=== PATIENT | female | born 2005 | race Caucasian/White ===

== ENCOUNTER 2025-04-07 16:57 | Observation (INO) ==
--- NOTE | 2025-04-07 17:47 | Emergency Department Note ---
ED Provider Note History of Present Illness Chief Complaint: Abdominal Pain Stated Complaint: SEVERE STOMACH PAIN Time Seen by Provider: 04/07/25 17:35 Source: patient Mode of arrival: ambulatory Limitations: no limitations Patient is a 20-year-old female who presents to the emergency department with complaints of lower abdominal pain. Patient states that she started having severe lower abdominal pain just 3 hours prior to arrival. Patient notes that her stomach got "hard as a rock". Patient denies any nausea, vomiting, or diarrhea. Patient also denies any previous abdominal surgeries. Home Medications Medication Instructions Recorded Confirmed Type oxycodone-acetaminophen 5 mg-325 1 tab PO Q6H PRN pain #10 tabs 04/08/25 Rx mg tablet Allergies Allergy/AdvReac Type Severity Reaction Status Date / Time No Known Drug Allergies Allergy Verified 04/07/25 21:30 Past Med/Surg History Problem List (Updated 04/08/25 @ 17:17 by JAKE Lockhart) Encounter for pre-operative examination Acute appendicitis (Acute) Medical History No pertinent past medical history Surgical History Hx of knee surgery Social History Smoking Status: Never smoker Second Hand Exposure: No; Do You Dip or Chew Tobacco: No; Tobacco Cessation Education Requested by Patient: No Hx Alcohol Use: Yes Alcohol type: hard liquor Hx Substance Use: No Preferred Language: Tajik Communication Ability: Effective Cloth Worker Required: No Beliefs That Will Affect Care: None Current Living Situation: Other Current Living Situation Comment: College Roommates Other Information That Helps Us Care for You: No Feels Safe at Home: Yes Safety Concerns: Feels Safe At This Time Assistive Devices: None Physical Exam Vital Signs Vital Signs - 24 hr 04/07/25 17:56 04/07/25 18:24 04/07/25 20:39 Temperature 37.1 C Temperature Source Oral Pulse Rate Pulse Rate [Finger] 90 89 Respiratory Rate 14 18 Respiratory Effort / Characteristics Non-Labored Spontaneous Non-Labored Spontaneous Respiratory Depth Normal Normal Respiratory Pattern Regular Regular Blood Pressure [Right Arm] 138/97 132/87 Blood Pressure Mean [Right Arm] 110 102 Blood Pressure Position [Right Arm] Lying Pulse Oximetry 100 100 98 Oxygen Delivery Method Room Air Room Air Room Air 04/07/25 21:12 Temperature 36.7 C Temperature Source Oral Pulse Rate 79 Pulse Rate [Finger] Respiratory Rate 18 Respiratory Effort / Characteristics Respiratory Depth Respiratory Pattern Blood Pressure [Right Arm] Blood Pressure Mean [Right Arm] Blood Pressure Position [Right Arm] Pulse Oximetry 99 Oxygen Delivery Method Room Air VITAL SIGNS - Vital signs and nursing notes were reviewed. GENERAL -20-year-old female appearing her stated age who is in no acute distress. Communicates well with provider and answers questions appropriately. HEAD - NC/AT. EYES - PERRL with EOMI bilaterally. Conjunctiva pink and moist with no injection noted. EARS - No deformities of external structures noted on gross examination bilaterally. NOSE - Midline and without cyanosis. No epistaxis or purulent drainage noted. LUNGS - Chest wall symmetric without accessory muscle use, intercostals retractions, or central cyanosis. Breath sounds clear throughout all horta. No wheezes, rales, or rhonchi appreciated. CARDIAC - RRR with S1/S2. No murmur, rubs, or gallops appreciated. ABDOMEN - Abdominal contour without pulsations or visible masses. Negative [place]'s or Alexandra Nichols's Signs. BS normoactive all four quadrants. Increased tenderness to palpation appreciated in the lower abdomen. No guarding. No noticeable rebound Tenderness. No palpable masses, hepatosplenomegaly, or ascites noted. NEUROLOGIC - Sensory intact to light touch throughout. PSYCH - A&Ox3 and cooperates fully with examiner. Pt is very pleasant and interacts well with examiner. Course Administered Medications Discontinued Medications Bupivacaine HCl/Epinephrine Bitart (Bupivacaine/Epinephrine 0.5% Mpf 1:200,000 30 Ml Vial) Confirm Administered Dose 30 ml .ROUTE .STK-MED ONE Stop: 04/07/25 21:48 Last Admin: 04/07/25 22:19 Dose: 30 ml Documented By: KILLIAN Sodium Chloride (Nss) 1,000 mls @ 999 mls/hr IV .Q1H1M ONE Stop: 04/07/25 19:21 Last Infusion: 04/07/25 19:30 Dose: Infused Documented By: Admin: 04/07/25 18:27 Dose: 999 mls/hr Documented By: RHONDA Piperacillin Sod/Tazobactam Sod (Zosyn) 4.5 gm in 100 mls @ 200 mls/hr IV NOW ONE; Protocol Stop: 04/07/25 20:33 Last Infusion: 04/07/25 21:08 Dose: Infused Documented By: Admin: 04/07/25 20:37 Dose: 200 mls/hr Documented By: LOBO Ioversol (Optiray 320 100ml) 90 ml IV ONCE ONE Stop: 04/07/25 19:15 Last Admin: 04/07/25 19:15 Dose: 90 ml Documented By: PIERCE Ketorolac Tromethamine (Ketorolac 30 Mg/Ml Vial) 15 mg IV ONCE PRN PRN Reason: PACU Use Only-Pain Stop: 04/08/25 05:35 Last Admin: 04/07/25 22:43 Dose: 15 mg Documented By: WILLAM Ketorolac Tromethamine (Ketorolac Tromethamine 15 Mg/Ml Vial) 15 mg IV Q6H PRN PRN Reason: Pain & Pre PT Stop: 04/12/25 23:29 Last Admin: 04/08/25 08:12 Dose: 15 mg Documented By: Admin: 04/08/25 02:17 Dose: 15 mg Documented By: MARCO Meperidine HCl (Meperidine Hcl 25 Mg/Ml Carp/Vial) 12.5 mg IV Q5M PRN PRN Reason: Surgi Pain/Chills/Rigors Stop: 04/08/25 06:33 Last Admin: 04/07/25 22:43 Dose: 12.5 mg Documented By: WILLAM Meperidine HCl (Meperidine Hcl 25 Mg/Ml Carp/Vial) Confirm Administered Dose 25 mg .ROUTE .STK-MED ONE Stop: 04/07/25 22:43 Last Admin: 04/07/25 23:33 Dose: Not Given Documented By: MARCO Medical Decision Making Differential Diagnosis Differential diagnoses includes gastritis, gastroenteritis, IBS, small bowel obstruction, pancreatitis, peritonitis, constipation, appendicitis, among others. Medical Records Attestation: I reviewed the patient's medical records. Home Medications was personally reviewed by me Laboratory Data Attestation: I reviewed the patient's lab results. 04/07/25 17:53 04/07/25 17:53 Lab Results 04/07/25 Range/Units 17:53 WBC 16.58 H (4.8-10.8) K/ul RBC 4.61 (4.20-5.40) M/uL Hgb 13.8 (12.0-16.0) g/dl Hct 40.4 (37.0-47.0) % MCV 87.6 (80.0-100.0) fL MCH 29.9 (25.0-34.0) pg MCHC 34.2 (32.0-36.0) g/dL RDW Std Deviation 43.5 (36.4-46.3) fL RDW Coeff of [place] 13.5 (11.5-14.5) % Plt Count 317 (130-400) K/uL MPV 10.1 (9.4-12.4) fL Immature Gran % (Auto) 0.3 % Neut % (Auto) 78.8 % Lymph % (Auto) 16.0 % [place] % (Auto) 3.6 % Eos % (Auto) 1.1 % Baso % (Auto) 0.2 % Neut # (Auto) 13.06 H (1.40-6.50) K/uL Lymph # (Auto) 2.65 (1.20-3.40) K/uL [place] # (Auto) 0.59 (0.11-0.59) K/uL Eos # (Auto) 0.19 (0.00-0.50) K/uL Baso # (Auto) 0.04 (0.00-0.20) K/uL Immature Gran # (Auto) 0.05 (0.01-0.20) K/uL Sodium 137 (136-145) mmol/L Potassium 3.3 L (3.5-5.1) mmol/L Chloride 101 (98-107) mmol/L Carbon Dioxide 26 (21-32) mmol/L Anion Gap 10 (3-11) BUN 12 (6-23) mg/dl Creatinine 0.79 (0.6-1.2) mg/dl Est Cr Clr Drug Dosing 105.7 ml/min eGFR 109.75 BUN/Creatinine Ratio 15.2 (10-20) Glucose 86 (70-99(Fasting)) mg/dl Calcium 9.8 (8.6-10.3) mg/dl Total Bilirubin 0.8 (0.2-1.0) mg/dl AST 26 (13-39) U/L ALT 17 (7-52) U/L Alkaline Phosphatase 67 (34-104) U/L Total Protein 7.9 (6.0-8.3) gm/dl Albumin 4.2 (3.4-5.0) gm/dl Globulin 3.7 (2.5-4.0) gm/dl Albumin/Globulin Ratio 1.1 (0.9-2) Lipase 14 (11-82) U/L HCG, Qual Negative (Negative) MDM Narrative Patient is a 20-year-old female who presents to the emergency department with complaints of lower abdominal pain. Patient states that she started having severe lower abdominal pain just 3 hours prior to arrival. Patient notes that her stomach got "hard as a rock". Patient denies any nausea, vomiting, or diarrhea. Patient also denies any previous abdominal surgeries. Patient was evaluated by myself and findings were noted in the physical exam above. Patient was ordered IV placement, lab work, urinalysis and CT of the abdomen pelvis. Patient was also ordered a liter of normal saline. Patient's lab work resulted with an elevated white blood cell count of 16.58. Patient had no significant electrolyte imbalance noted. Patient did have a negative hCG level. Patient's urinalysis noted 2+ ketones but was not indicative of infection. Patient declined any need for significant pain control at this time, noting that the pain is tolerable. Patient CT of the abdomen pelvis showed a mildly dilated appendix without definitive evidence of acute appendicitis. The patient is having localized pain to her lower abdomen, primarily on the right side. I reached out and spoke with Dr. Bernardino Galloway who is on-call for general surgery. Given the full report of the patient's chief complaint, current status and the results of her imaging and lab work. He was agreeable to see the patient at bedside and will likely take her to the operating room for an appendectomy. I discussed this plan with the patient the patient verbalized understanding and was agreeable to the plan. Patient declined any need for pain control at this time. Patient was ordered 4.5 g of Zosyn. Please refer to Dr. Galloway and his team's documentation for further evaluation and management of this patient. Patient was taken to the OR by nursing staff. Impression Acute appendicitis Discharge Plan Visit Data Chief Complaint: Abdominal Pain Stated Complaint: SEVERE STOMACH PAIN ED Provider: Yadile Pimentel ED Midlevel Provider: Tiara Jackson Discharge Problem: Acute appendicitis Patient Disposition: Being Evaluated by Surgeon Condition: Fair Discharge Instructions Interventions: ED Discharge Assessment Last Done: 04/07/25 21:12 ED DC CONDITION Conditon at Discharge Condition at Discharge: Fair Discharge Problem: Acute appendicitis Qualifiers: Acute appendicitis type: with localized peritonitis Appendicitis gangrene presence: without gangrene Appendicitis perforation presence: without perforation Appendicitis abscess presence: without abscess Qualified Code(s): K 35.30 - Acute appendicitis with localized peritonitis, without perforation or gangrene
[2025-04-07 18:19] LABS: Appearance Urine Clear (Clear); Bacteria Urine Automated None Seen (None Seen); Cast Urine Automated 0-2 /lpf (0-2); Epithelial Cell Urine Auto 0-2 /hpf (0-2); Glucose Urine UA Negative (Negative); RBC Urine Automated 0-2 /hpf (0-2); WBC Urine Automated 0-5 /hpf (0-5)
[2025-04-07 18:25] LABS: Hematocrit (blood only) 40.4 % (37.0-47.0); Hemoglobin 13.8 g/dl (12.0-16.0); Immature Granulocytes # (auto) 0.05 K/uL (0.01-0.20); Immature Granulocytes % (auto) 0.3 %; Mean Corpuscular Hemoglobin 29.9 pg (25.0-34.0); Mean Corpuscular Volume 87.6 fL (80.0-100.0); Platelet Count 317 K/uL (130-400); RDW Standard Deviation 43.5 fL (36.4-46.3); Red Blood Count 4.61 M/uL (4.20-5.40); White Blood Count 16.58 K/ul (4.8-10.8)
[2025-04-07] MEDS: SODIUM CHLORIDE 0.9% 1,000 ML IV ONE (18:27)
[2025-04-07 18:35] LABS: Alanine Aminotransferase 17.0 U/L (7-52); Albumin Globulin Ratio 1.1 (0.9-2); Alkaline Phosphatase 67.0 U/L (34-104); Anion Gap 10.0 (3-11); Bilirubin,Total 0.8 mg/dl (0.2-1.0); Blood Urea Nitrogen 12.0 mg/dl (6-23); Calcium 9.8 mg/dl (8.6-10.3); Carbon Dioxide 26.0 mmol/L (21-32); Chloride 101.0 mmol/L (98-107); Creatinine Clr Calc Pharmacy 105.7 ml/min; Globulin 3.7 gm/dl (2.5-4.0); Glucose 86.0 mg/dl (70-99(Fasting)); Lipase 14.0 U/L (11-82); Potassium 3.3 mmol/L (3.5-5.1); Sodium 137.0 mmol/L (136-145); Total Protein 7.9 gm/dl (6.0-8.3)
[2025-04-07 18:36] LABS: Pregnancy Test, Serum Negative (Negative)
[2025-04-07] MEDS: OPTIRAY 320 100ml IV ONE (19:15)
--- NOTE | 2025-04-07 19:56 | CT Scan Report ---
Clinical History: Abdominal pain Technique: Axial computed tomography images were obtained of the abdomen and pelvis after the administration of intravenous contrast. No prior CT is available for comparison. Findings: The liver is overall of normal size, attenuation, and contour with no sign of cirrhosis or significant fatty infiltration. No liver mass lesion is seen. The portal vein is patent. The gallbladder appears unremarkable. No bile duct dilatation is noted. The spleen is of normal size. No focal splenic lesion is evident. The pancreas appears normal with no sign of acute or chronic pancreatitis and no mass lesion noted. The pancreatic duct is of normal caliber. The adrenal glands appear unremarkable. No definite renal or proximal ureteral calculi are seen on this contrast-enhanced study. There is no hydronephrosis or perinephric stranding. No renal mass lesion is identified. The aorta is of normal caliber. No abdominal adenopathy is seen. The stomach appears normal. There is no sign of small bowel obstruction. The colon appears unremarkable. The appendix is mildly dilated, measuring up to 8 mm. No clear adjacent soft tissue stranding is seen. No free intraperitoneal air is identified. There is a small amount of free pelvic fluid No distal ureteral or bladder calculi are seen. No bladder mass lesion is evident. The iliac arteries are of normal caliber. No pelvic adenopathy is noted. The lungs bases appear clear. No fracture is identified. No focal osseous lesion is seen Impression: 1. Mildly dilated appendix without definite appendicitis. Early/mild acute appendicitis cannot be excluded. Correlation with clinical symptoms and history is recommended 2. Small amount of free pelvic fluid ACT 112: Positive. There are findings on this exam that require communication between the performing entity and the patient following Patient Test Result Information Act ([place] ACT 112) guidelines. Electronically signed by Antwan Bobo 04-07-2025 7:56 PM
[2025-04-07] MEDS: PIPERACILLIN/TAZOBACTAM 4.5 GM/100 ML BAG IV ONE (20:37)
--- NOTE | 2025-04-07 20:53 | History & Physical Report ---
Date of Service April 07, 2025 Assessment & Plan (1) Acute appendicitis: Plan 20-year-old woman with acute appendicitis. We discussed the risk benefits of laparoscopic appendectomy. All her questions were answered and she is agreeable to proceed. Will take her to the operating room at the earliest convenience. Consent has been obtained. History of Present Illness Primary Care Provider: NO PCP 20-year-old presents with a 1 day history of severe lower abdominal pain. He begins cramping and then worsens. It is now migrated to the right lower quadrant. She did have chills. No nausea or vomiting. No fevers. Normal bowel movements. She has never had abdominal surgery before. White blood cell count 16. CT scan demonstrates early acute appendicitis. Past Med/Surg History Problem List (Updated 04/07/25 @ 20:53 by Bernardino Galloway MD) Acute appendicitis Social History Smoking Status: Never smoker Preferred Language: Czech Feels Safe at Home: Yes Review of Systems Review of Systems: All systems reviewed & are unremarkable except as noted in HPI & below Physical Exam Constitutional: WD/WN, vitals as above Eyes: PERRL, conjunctivae normal, anicteric sclerae Neck: trachea midline, no thyromegaly Respiratory: normal respiratory effort, lungs clear to auscultation Cardiovascular: RRR, no murmur, no edema Gastrointestinal (Abdomen): Inspection/Auscultation: abdomen normal to inspection; abdomen not distended Percussion/Palpation: + abdomen tender ( RLQ) and abdomen soft; no guarding and abdomen not rigid Skin: no rashes, warm and dry Psychiatric: A+Ox3, euthymic affect Results & Data Results & Data Vital Signs (Past 12 Hours) Vital Signs Temp Pulse Pulse Resp BP BP Pulse Ox 04/07/25 20:39 37.1 C 89 18 132/87 98 04/07/25 18:24 90 14 138/97 100 04/07/25 17:56 100 04/07/25 17:06 36.4 C L 105 H 18 122/83 98 O2 Del Method 04/07/25 20:39 Room Air 04/07/25 18:24 Room Air 04/07/25 17:56 Room Air 04/07/25 17:06 Room Air Laboratory Results 04/07/25 04/07/25 Range/Units Unknown 17:53 WBC 16.58 H (4.8-10.8) K/ul RBC 4.61 (4.20-5.40) M/uL Hgb 13.8 (12.0-16.0) g/dl Hct 40.4 (37.0-47.0) % MCV 87.6 (80.0-100.0) fL MCH 29.9 (25.0-34.0) pg MCHC 34.2 (32.0-36.0) g/dL RDW Std Deviation 43.5 (36.4-46.3) fL RDW Coeff of [place] 13.5 (11.5-14.5) % Plt Count 317 (130-400) K/uL MPV 10.1 (9.4-12.4) fL Immature Gran % (Auto) 0.3 % Neut % (Auto) 78.8 % Lymph % (Auto) 16.0 % [place] % (Auto) 3.6 % Eos % (Auto) 1.1 % Baso % (Auto) 0.2 % Neut # (Auto) 13.06 H (1.40-6.50) K/uL Lymph # (Auto) 2.65 (1.20-3.40) K/uL [place] # (Auto) 0.59 (0.11-0.59) K/uL Eos # (Auto) 0.19 (0.00-0.50) K/uL Baso # (Auto) 0.04 (0.00-0.20) K/uL Immature Gran # (Auto) 0.05 (0.01-0.20) K/uL Sodium 137 (136-145) mmol/L Potassium 3.3 L (3.5-5.1) mmol/L Chloride 101 (98-107) mmol/L Carbon Dioxide 26 (21-32) mmol/L Anion Gap 10 (3-11) BUN 12 (6-23) mg/dl Creatinine 0.79 (0.6-1.2) mg/dl Est Cr Clr Drug Dosing 105.7 ml/min eGFR 109.75 BUN/Creatinine Ratio 15.2 (10-20) Glucose 86 (70-99(Fasting)) mg/dl Calcium 9.8 (8.6-10.3) mg/dl Total Bilirubin 0.8 (0.2-1.0) mg/dl AST 26 (13-39) U/L ALT 17 (7-52) U/L Alkaline Phosphatase 67 (34-104) U/L Total Protein 7.9 (6.0-8.3) gm/dl Albumin 4.2 (3.4-5.0) gm/dl Globulin 3.7 (2.5-4.0) gm/dl Albumin/Globulin Ratio 1.1 (0.9-2) Lipase 14 (11-82) U/L HCG, Qual Negative (Negative) Urine Color Yellow Urine Appearance Clear (Clear) Urine pH 6.5 (4.5-7.5) Ur Specific [place] 1.021 (1.000-1.030) Urine Protein Negative (Negative) Urine Glucose (UA) Negative (Negative) Urine Ketones 2+ H (Negative) Urine Blood Negative (Negative) Urine Nitrite Negative (Negative) Urine Bilirubin Negative (Negative) Urine Urobilinogen Negative (Negative) Ur Leukocyte Esterase Trace H (Negative) Urine WBC (Auto) 0-5 (0-5) /hpf Urine RBC (Auto) 0-2 (0-2) /hpf U Hyaline Cast (Auto) 0-2 (0-2) /lpf U Epithel Cells (Auto) 0-2 (0-2) /hpf Urine Bacteria (Auto) None Seen (None Seen) Urine Comment Diagnostic Findings Clinical History: Abdominal pain Technique: Axial computed tomography images were obtained of the abdomen and pelvis after the administration of intravenous contrast. No prior CT is available for comparison. Findings: The liver is overall of normal size, attenuation, and contour with no sign of cirrhosis or significant fatty infiltration. No liver mass lesion is seen. The portal vein is patent. The gallbladder appears unremarkable. No bile duct dilatation is noted. The spleen is of normal size. No focal splenic lesion is evident. The pancreas appears normal with no sign of acute or chronic pancreatitis and no mass lesion noted. The pancreatic duct is of normal caliber. The adrenal glands appear unremarkable. No definite renal or proximal ureteral calculi are seen on this contrast-enhanced study. There is no hydronephrosis or perinephric stranding. No renal mass lesion is identified. The aorta is of normal caliber. No abdominal adenopathy is seen. The stomach appears normal. There is no sign of small bowel obstruction. The colon appears unremarkable. The appendix is mildly dilated, measuring up to 8 mm. No clear adjacent soft tissue stranding is seen. No free intraperitoneal air is identified. There is a small amount of free pelvic fluid No distal ureteral or bladder calculi are seen. No bladder mass lesion is evident. The iliac arteries are of normal caliber. No pelvic adenopathy is noted. The lungs bases appear clear. No fracture is identified. No focal osseous lesion is seen Impression: 1. Mildly dilated appendix without definite appendicitis. Early/mild acute appendicitis cannot be excluded. Correlation with clinical symptoms and history is recommended 2. Small amount of free pelvic fluid ACT 112: Positive. There are findings on this exam that require communication between the performing entity and the patient following Patient Test Result Information Act ([place] ACT 112) guidelines. Electronically signed by Antwan Bobo 04-07-2025 7:56 PM Dictated: 04/07/251911 Transcribed:
[2025-04-07] MEDS ORDERED: PROPOFOL IV EMULSION 10 MG/ML 20 ML VIAL IV ONE (20:56)
[2025-04-07] MEDS ORDERED: MIDAZOLAM HCL 1 MG/ML 2ML VIAL ONE (20:56)
[2025-04-07] MEDS ORDERED: LIDOCAINE 2% 2 ML VIAL/AMP(20MG/ML) INFIL ONE (20:56)
[2025-04-07] MEDS ORDERED: ROCURONIUM BROMIDE 10 MG/ML 5 ML VIAL IV ONE (20:56)
[2025-04-07] MEDS ORDERED: DEXAMETHASONE SOD INJ 4 MG/ML VIAL ONE (21:00)
[2025-04-07] MEDS ORDERED: ONDANSETRON INJ 2 MG/ML 2 ML VIAL ONE (21:00)
--- NOTE | 2025-04-07 21:32 | Anesthesiology Consultation ---
Date of Service April 07, 2025 Assessment & Plan (1) Encounter for pre-operative examination: Chart Review Chart Review: Acceptable Risk for Surgery History Surgery Operation Date: 04/07/25 21:15 Proposed Procedures p Laparoscopic Appendectomy - Bernardino Galloway MD Height/Weight Height: 5 ft 3 in Weight: 68.7 kg Allergies Allergy/AdvReac Type Severity Reaction Status Date / Time No Known Drug Allergies Allergy Verified 04/07/25 21:30 NPO Last Intake of Fluids Comment: 16:00 Last Intake of Solids Comment: 14:00 Past Medical History Medical History (Updated 04/07/25 @ 21:32 by Maurice Cabral MD) No pertinent past medical history Past Surgical History Surgical History (Updated 04/07/25 @ 21:32 by Maurice Cabral MD) Hx of knee surgery Social History Smoking Status: Never smoker Physical Exam Vital Signs Last Vital Signs Temp 37.1 C 04/07/25 20:39 Pulse 89 04/07/25 20:39 Resp 18 04/07/25 20:39 BP 132/87 04/07/25 20:39 Pulse Ox 98 04/07/25 20:39 O2 Del Method Room Air 04/07/25 20:39 Testing Laboratory Results 04/07/25 17:53 04/07/25 17:53 Urine Color Yellow 04/07/25 Unknown Urine Appearance Clear (Clear) 04/07/25 Unknown Urine pH 6.5 (4.5-7.5) 04/07/25 Unknown Ur Specific [place] 1.021 (1.000-1.030) 04/07/25 Unknown Urine Protein Negative (Negative) 04/07/25 Unknown Urine Glucose (UA) Negative (Negative) 04/07/25 Unknown Urine Ketones 2+ (Negative) H 04/07/25 Unknown Urine Nitrite Negative (Negative) 04/07/25 Unknown Ur Leukocyte Esterase Trace (Negative) H 04/07/25 Unknown Urine WBC (Auto) 0-5 /hpf (0-5) 04/07/25 Unknown Urine RBC (Auto) 0-2 /hpf (0-2) 04/07/25 Unknown U Hyaline Cast (Auto) 0-2 /lpf (0-2) 04/07/25 Unknown U Epithel Cells (Auto) 0-2 /hpf (0-2) 04/07/25 Unknown Urine Bacteria (Auto) None Seen (None Seen) 04/07/25 Unknown
[2025-04-07] MEDS ORDERED: PROMETHAZINE HCL 6.25 MG in SODIUM CHLORIDE 0.9% 50 ML IV PRN (21:35)
[2025-04-07] MEDS ORDERED: ATROPINE SULFATE 0.1 MG/ML 10ML SYR IV PRN (21:35)
[2025-04-07] MEDS ORDERED: GLYCOPYRROLATE 0.2 MG/ML VIAL ONE (22:13)
[2025-04-07] MEDS ORDERED: NEOSTIGMINE METHYLSULFATE 1 MG/ML 10ML VIAL ONE (22:13)
[2025-04-07] MEDS: BUPIVACAINE/EPINEPHRINE 0.5% MPF 1:200,000 30 ML VIAL ONE (22:19)
--- NOTE | 2025-04-07 22:29 | Operative Report ---
Post Operative Report Pre & Post Diagnosis Operation Date: 04/07/25 21:15 Pre-Op Diagnosis: Acute appendicitis Post-Op Diagnosis: Acute appendicitis I identified the patient and participated in the time-out.: Yes Procedure Operation Date: 04/07/25 21:15 Actual Procedures p Laparoscopic Appendectomy(Not Applicable) - Bernardino Galloway MD Surgeon Bernardino Galloway MD Contract Preparer None Estimated Blood Loss 5 Findings Consistent with Post-Op Diagnosis acute appendicitis Specimens appendix Drains none Anesthesia Type General Complications none Description of Procedure the patient was taken to the operating room, and placed supine on the operating table. A timeout was performed, perioperative antibiotics were administered, SCD boots were placed. After adequate anesthesia and analgesia was obtained, the abdomen was prepped and draped in the normal sterile fashion. A 1 cm incision was made in the supraumbilical region and carried down to the level of the fascia. A trach hook was used to grasp the fascia and elevated and a varies needle was used to enter the abdominal cavity. The abdomen was insufflated to a pressure of 15 mmHg, and a 5 mm trocar was placed in this location. A 5 mm 30 degree laparoscope was placed into the abdominal cavity, and the abdomen was surveyed. The patient was placed in Trendelenburg and slightly to the left. One 5 mm trocar was placed in the right upper quadrant, and one 12 mm trocar was placed in the left lower quadrant under direct visualization. The right colon was identified and traced down to the cecum. The appendix was identified and elevated anteriorly and medially. A window was created at the base of the appendix with a [place] dissector. The Endo GERMANIA stapler was used to transect the appendix at its base through noninflamed tissue, and subsequently the mesoappendix. The appendix was placed in an Endo Catch bag, and removed via the left lower quadrant port site. Attention was turned to hemostasis, which was excellent. The abdomen was copiously irrigated and suctioned free, and again hemostasis was found to be excellent. All trochars removed under direct visualization. The abdomen was desufflated. The fascia in the 12 mm port site was closed with a 0 Vicryl suture. The skin was closed with a running 4-0 Monocryl subcuticular stitch. Dermabond was applied. The patient tolerated the procedure without complication, and was transferred in stable condition to the PACU. All instrument, needle, and sponge counts were correct at the end of the case. I attest to the content of the Intraoperative Record and any orders documented therein. Any exceptions are noted below.
--- NOTE | 2025-04-07 22:29 | Post Operative Brief Note ---
Immediate Post Op Note Date of Surgery April 07, 2025 Pre & Post Diagnosis Operation Date: 04/07/25 21:15 Pre-Op Diagnosis: Acute appendicitis Post-Op Diagnosis: Acute appendicitis I identified the patient and participated in the time-out.: Yes Procedure Operation Date: 04/07/25 21:15 Actual Procedures p Laparoscopic Appendectomy(Not Applicable) - Bernardino Galloway MD Surgeon Bernardino Galloway MD Planogrammer None Estimated Blood Loss 5 Findings Consistent with Post-Op Diagnosis
[2025-04-07] MEDS: MEPERIDINE HCL 25 MG/ML CARP/VIAL IV PRN (22:43)
[2025-04-07] MEDS: KETOROLAC 30 MG/ML VIAL IV PRN (22:43)
--- NOTE | 2025-04-07 23:14 | Anesthesiology Progress Note ---
Date of Service April 07, 2025 Anesthesia Post Procedure Vital Signs Vital Signs: Temp Pulse Pulse Pulse Resp BP BP 04/07/25 23:05 36.6 C 80 18 138/84 04/07/25 22:55 84 18 142/88 H 04/07/25 22:45 95 H 16 148/86 H 04/07/25 22:35 36.1 C L 113 H 18 139/96 04/07/25 21:12 36.7 C 79 18 04/07/25 20:39 37.1 C 89 18 132/87 04/07/25 18:24 90 14 138/97 04/07/25 17:56 04/07/25 17:06 36.4 C L 105 H 18 122/83 Pulse Ox O2 Del Method 04/07/25 23:05 98 Room Air 04/07/25 22:55 97 Room Air 04/07/25 22:45 100 Room Air 04/07/25 22:35 100 Room Air 04/07/25 21:12 99 Room Air 04/07/25 20:39 98 Room Air 04/07/25 18:24 100 Room Air 04/07/25 17:56 100 Room Air 04/07/25 17:06 98 Room Air Pain Intensity Abdomen: Pain Intensity: 4 Transfer of Care Handoff Completed per policy Notes Mental Status: alert / awake / arousable Patient Amnestic to Procedure: Yes Nausea / Vomiting: adequately controlled Pain: adequately controlled Airway Patency, RR, SpO2: stable & adequate BP & HR: stable & adequate Hydration State: stable & adequate Anesthetic Complications: no major complications apparent
[2025-04-07] MEDS ORDERED: ONDANSETRON INJ 2 MG/ML 2 ML VIAL IV PRN (23:30)
[2025-04-07] MEDS ORDERED: MoRPHine SULFATE 2 MG/ML CARP IV PRN ×2 (23:30)
[2025-04-07] MEDS ORDERED: PROMETHAZINE 12.5 MG/50.5 ML BAG IV PRN (23:30)
[2025-04-07] MEDS ORDERED: diphenhydrAMINE Capsule 25 MG CAP PO PRN (23:30)
[2025-04-07] MEDS: MEPERIDINE HCL 25 MG/ML CARP/VIAL ONE (23:33)
[2025-04-08 00:18] VITALS: RESP 18
[2025-04-08] MEDS: KETOROLAC TROMETHAMINE 15 MG/ML VIAL IV PRN (02:17)
[2025-04-08 06:19] VITALS: O2SAT 98
[2025-04-08 07:08] VITALS: BP 105/68; TEMP 97.9
--- NOTE | 2025-04-08 09:57 | Surgery Progress Note ---
Date of Service April 08, 2025 Assessment & Plan (1) Acute appendicitis: Plan: POD #1 s/p laparoscopic appendectomy. Doing well. Advance diet as tolerated. Discharge to home later this morning. Follow-up in clinic in 2 Weeks. Admission and Anticipated Discharge Date Admission Date: April 07, 2025 Subjective Doing well. No pain or tenderness. Tolerating diet. No fevers or chills. Physical Exam Physical Exam: NAD, A&O x 3 NCAT, no scleral icterus Abdomen: Soft, nontender, nondistended Incisions healing well without erythema or discharge Dermabond in place Results & Data Vital Signs (Past 12 Hours) Vital Signs Temp Pulse Pulse Resp BP Pulse Ox Pulse Ox 04/08/25 07:08 36.6 C 68 18 105/68 98 04/08/25 06:18 36.7 C 77 18 118/76 98 04/08/25 02:14 36.7 C 86 18 111/72 97 04/08/25 01:09 36.8 C 91 H 18 118/76 97 04/08/25 00:17 36.7 C 78 18 125/78 96 04/07/25 23:45 36.7 C 87 16 124/73 97 04/07/25 23:15 36 C L 89 16 135/81 97 04/07/25 23:15 97 04/07/25 23:05 36.6 C 80 18 138/84 98 04/07/25 22:55 84 18 142/88 H 97 04/07/25 22:45 95 H 16 148/86 H 100 04/07/25 22:35 36.1 C L 113 H 18 139/96 100 O2 Del Method O2 Del Method 04/08/25 07:08 Room Air 04/08/25 06:18 Room Air 04/08/25 02:14 Room Air 04/08/25 01:09 Room Air 04/08/25 00:17 Room Air 04/07/25 23:45 Room Air 04/07/25 23:15 Room Air 04/07/25 23:15 Room Air 04/07/25 23:05 Room Air 04/07/25 22:55 Room Air 04/07/25 22:45 Room Air 04/07/25 22:35 Room Air
[2025-04-08 11:19] VITALS: PULSE 77
== END 2025-04-08 12:03 | disposition home or self-care (01) ==
LOC: ED 16:57 → 3N 16:57
DX: K35.30 Acute appendicitis with localized peritonitis, without perforation or gangrene